=== PATIENT | female | born 1990 | race Caucasian/White ===

== ENCOUNTER 2019-06-18 10:52 | Emergency (ER) | payer MEDICAID ==
[~2019-06-18] VITALS: Ht 167.6 cm; Wt 113.6 kg
[2019-06-18 13:46] VITALS: BP 140/74
== END 2019-06-18 13:48 | disposition home or self-care (01) ==
LOC: EMS 10:56
DX: L03.116 Cellulitis of left lower limb (principal); R03.0 Elevated blood-pressure reading, without diagnosis of hypertension